=== PATIENT | female | born 1975 | race Caucasian/White ===

== ENCOUNTER 2016-11-06 20:21 | Emergency (ER) | payer OTHER ==
[~2016-11-06] VITALS: Ht 154.9 cm; Wt 62.1 kg
[~2016-11-06 20:21] MED LIST: NAPROSYN500 MG PO
[2016-11-06 23:13] VITALS: BP 134/93
== END 2016-11-06 23:14 | disposition home or self-care (01) ==
LOC: EME → EDBD 20:21 → EME 23:14
DX: S09.90XA Unspecified injury of head, initial encounter (principal); Y04.8XXA Assault by other bodily force, initial encounter
CPT/HCPCS: 70450; 72125; 99281; 99284